=== PATIENT | female | born 1995 | race Caucasian/White ===

== ENCOUNTER 2016-11-25 16:03 | Observation (INO) ==
--- NOTE | 2016-11-25 17:22 | Emergency Department Note ---
Disposition Clinical Impression: Chest pain, rule out acute myocardial infarction, IVDU (intravenous drug user) Disposition: Admitted As Inpatient Condition: Good Referrals: NONE,PCP [Primary Care Provider] - Forms: ED Satisfaction Letter Time of Disposition: 20:10 General Adult HPI - General Chief complaint: ED Arrhythmia/Palpitations Stated complaint: CP/ Abnormal EKG Time Seen by Provider: 11/25/16 16:30 Source: patient Limitations: no limitations Nursing Notes Reviewed: Yes Vital Signs Reviewed: Yes - History of Present Illness HPI Narrative: 21 year old female who is a IVDA, meth, and heorin abuser states that she most recently had a meth binge in addition to doing heorin 3 days ago and is now having increased chest pain and shortness of breath and was seen at the urgent care and she has some t wave inversion on v1-3. Patient states that her chest pain is sharp and located in the midsternal area and radiates in her back and associated with exertion dyspnea. Patinet states that she has had some nausea assocated with it as well but has not vomitted. She states she also has been doing suboxone and that the meth they smoked and injected it. Patient states that this is the first time she is expernecing this chest pain and that she denies any other history of DVTs/PEs. States she also has diaphoresis with it as well Pain Scale: 3 - Related Data Home Medications Medication Instructions Recorded Confirmed No Known Home Drugs 08/27/16 11/25/16 Allergies Allergy/AdvReac Type Severity Reaction Status Date / Time No Known Allergies Allergy Verified 11/25/16 14:52 Constitutional: Denies: fever, chills, weakness, weight change Eyes: Denies: eye pain, eye discharge, vision change ENT ED: Denies: ear pain, throat pain, dental pain, hearing loss, epistaxis, congestion, dysphagia Cardiovascular: Reports: chest pain, palpitations, dyspnea on exertion. Denies : edema, syncope Respiratory: Denies: cough, dyspnea, wheezes, hemoptysis, stridor Gastrointestinal: Reports: nausea. Denies: abdominal pain, vomiting, diarrhea, constipation, hematemesis, melena, hematochezia Genitourinary: Denies: dysuria, frequency, hematuria, discharge Musculoskeletal: Denies: back pain, neck pain, arthralgia, myalgia Integumentary: Denies: rash, abrasion, lesions Neurological: Denies: headache, weakness, numbness, paresthesias, confusion, abnormal gait, vertigo Psychiatric: Denies: anxiety, depression, suicidal thoughts, homicidal thoughts , auditory hallucinations, visual hallucinations Endocrine: Denies: fatigue Hematological/Lymphatic: Denies: easy bleeding, easy bruising Allergic/Immunologic: Denies: facial swelling, urticaria Past Medical History - Past Medical History Medical history: Reports: hepatitis Surgical history: Reports: no surgical history Psychiatric history: Reports: no psych history COMBAT SYSTEMS OFFICER history: Reports: no COMBAT SYSTEMS OFFICER history - Social History Smoking Status: Current every day smoker Smokeless Tobacco Status: No Alcohol use: Reports: none Drug use: Reports: IV Drug Use, other Physical Exam - General Limitations: no limitations General appearance: alert, in no apparent distress - Head Head exam: atraumatic, normocephalic, normal inspection - Eye Eye exam: Present: normal appearance, PERRL, EOMI - Expanded Eye Exam Pupils: Left: reactive - ENT ENT exam: normal exam, normal oropharynx, mucous membranes moist - Expanded ENT Exam External ear exam: Present: normal external inspection Mouth exam: Present: normal external inspection Teeth exam: Present: normal inspection Throat exam: Present: normal inspection - Neck Neck exam: Present: normal inspection, full ROM, trachea midline - Chest Chest inspection: Present: normal inspection, symmetric chest wall rise - Respiratory Respiratory exam: Present: normal lung sounds bilaterally - Cardiovascular Cardiovascular exam: Present: regular rate, normal rhythm, normal heart sounds - Abdominal Exam Abdominal exam: Present: soft, Non-Tender. Absent: tenderness, distention, guarding, rebound, rigidity - Extremities Exam Extremities exam: Present: normal inspection, full ROM. Absent: tenderness, pedal edema - Expanded Upper Extremity Exam Shoulder exam: Present: normal inspection, full ROM Arm exam: Present: normal inspection, full ROM Elbow exam: Present: normal inspection, full ROM Forearm/Wrist exam: Present: normal inspection, full ROM Hand exam: Present: normal inspection, full ROM Vascular exam: Normal: capillary refill, radial pulse - Expanded Lower Extremity Exam Hip/Pelvis exam: Present: normal inspection, full ROM Upper leg exam: Present: normal inspection, full ROM Knee exam: Present: normal inspection, full ROM Lower leg exam: Present: normal inspection, full ROM Ankle exam: Present: normal inspection, full ROM Foot/toe exam: Present: normal inspection, full ROM Neurovascular/Tendon exam: Absent: motor deficit, sensory deficit, tendon deficit - Back Exam Back exam: Present: normal inspection, full ROM. Absent: tenderness - Neurological Exam Neurological exam: Present: alert, oriented X3 - Expanded Neurological Exam Patient oriented to: Present: person, place, time Coma Scale Eye Opening: Spontaneous Coma Scale Motor Response: Obeys Commands Coma Scale Verbal Response: Oriented Coma Scale Total: 15 - Psychiatric Psychiatric exam: Present: normal affect, normal mood - Skin Skin exam: Present: warm, dry, intact, normal color Course Course Narrative: we will do a CTA chest and cardiac workup and rule out pathology such as PE, endocarditis, or drug-induced cardiac ischemia - Reevaluation(s) Reevaluation #1: updated and discussed results. and patient is willing to be admitted to the hospital Time: 20:09 - Consultations Consultation #1: discussed case with Dr. gordon and he accepts patinet for admission. Time: 20:09 Vital Signs Temperature 98.0 F 11/25/16 16:14 Pulse Rate 75 11/25/16 16:14 Respiratory Rate 16 11/25/16 16:14 Blood Pressure 130/84 11/25/16 16:14 O2 Sat by Pulse Oximetry 99 11/25/16 16:14 Temperature 98.0 F 11/25/16 16:14 Pulse Rate 87 11/25/16 17:02 Respiratory Rate 20 11/25/16 17:02 Blood Pressure 121/75 11/25/16 17:02 O2 Sat by Pulse Oximetry 98 11/25/16 17:02 Oxygen Delivery Oxygen Delivery Room Air Medical Decision Making - Lab Data Result diagrams: 11/25/16 15:56 11/25/16 15:56 Lab Results 11/25/16 11/25/16 11/25/16 Range/Units 15:56 15:56 15:56 WBC 7.1 (4.3-11.1) K/mcL RBC 4.80 (3.82-4.97) M/mcL Hgb 13.8 (11.5-15.4) g/dL Hct 42.2 (35.3-44.9) % MCV 87.9 (83.0-100.0) fL MCH 28.8 (28.0-33.3) pg MCHC 32.7 (31.6-35.5) g/dL RDW 11.5 (11.5-14.5) % Plt Count 279 (140-400) K/mcL MPV 10.3 (9.4-12.4) fL Immature Gran % 0.1 (0-4) % Seg Neutrophils % 58.4 % Lymphocytes % 31.3 % Monocytes % 6.6 % Eosinophils % 3.2 % Basophils % 0.4 % Neutrophils # 4.1 (1.6-8.9) K/mcL Lymphocytes # 2.2 (0.6-4.6) K/mcL Monocytes # 0.5 (0.0-1.3) K/mcL Eosinophils # 0.2 (0.0-0.6) K/mcL Basophils # 0.0 (0.0-0.2) K/mcL PT 10.2 (9.4-12.1) Seconds INR 1.0 APTT 30.9 (26.0-36.0) Seconds D-Dimer 317 (0-500) ng/mLFEU Sodium (136-145) mEq/L Potassium (3.5-4.5) mEq/L Chloride (98-109) mEq/L Carbon Dioxide (19-29) mEq/L BUN (7-20) mg/dL Creatinine (0.57-1.11) mg/dL Est GFR ( Amer) (> 60) Est GFR (Non-Af Amer) (> 60) BUN/Creatinine Ratio (6-26) Glucose (70-99) mg/dL Calculated Osmolality (280-300) Calcium (8.6-10.8) mg/dL Total Bilirubin (0.2-1.2) mg/dL Direct Bilirubin (0.0-0.5) mg/dL Indirect Bilirubin (0.0-1.2) mg/dL AST (5-34) Units/L ALT (0-55) Units/L Alkaline Phosphatase (38-126) Units/L Troponin I (0-0.03) ng/mL B-Natriuretic Peptide 13 (0-100) pg/mL Serum Total Protein (6.0-8.3) g/dL Albumin (3.5-5.0) g/dL Globulin (2.4-3.5) g/dL Albumin/Globulin Ratio (1.1-2.2) Lipase (8-78) Units/L Urine Color (Yellow) Urine Clarity (Clear) Urine pH (5.0-8.0) pH Units Ur Specific [place] (1.010-1.025) Urine Protein (Neg-Trace) mg/dL Urine Glucose (UA) (Normal) mg/dL Urine Ketones (Negative) mg/dL Urine Blood (Negative) Urine Nitrite (Negative) Urine Bilirubin (Negative) Urine Urobilinogen (Normal) mg/dL Ur Leukocyte Esterase (Negative) Urine Microscopic RBC (0-3) per hpf Urine Microscopic WBC (0-3) per hpf Ur Squamous Epith Cells (None-Few) per lpf Urine Bacteria (None-Few) per hpf Hyaline Casts (None-Few) per lpf Ur Culture Indicated? (NO) Urine Test (Negative) Urine Opiates Screen (Butfsu=413) ng/mL Ur Barbiturates Screen (Sratgu=919) ng/mL Ur Phencyclidine Scrn (Cutoff=25) ng/mL Ur Amphetamines Screen (Znsuas=3768) ng/mL U Benzodiazepines Scrn (Huwmsn=933) ng/mL Urine Cocaine Screen (Cutoff= 300) ng/mL U Marijuana (THC) Screen (Cutoff = 50) ng/mL 11/25/16 11/25/16 11/25/16 Range/Units 15:56 15:56 17:02 WBC (4.3-11.1) K/mcL RBC (3.82-4.97) M/mcL Hgb (11.5-15.4) g/dL Hct (35.3-44.9) % MCV (83.0-100.0) fL MCH (28.0-33.3) pg MCHC (31.6-35.5) g/dL RDW (11.5-14.5) % Plt Count (140-400) K/mcL MPV (9.4-12.4) fL Immature Gran % (0-4) % Seg Neutrophils % % Lymphocytes % % Monocytes % % Eosinophils % % Basophils % % Neutrophils # (1.6-8.9) K/mcL Lymphocytes # (0.6-4.6) K/mcL Monocytes # (0.0-1.3) K/mcL Eosinophils # (0.0-0.6) K/mcL Basophils # (0.0-0.2) K/mcL PT (9.4-12.1) Seconds INR APTT (26.0-36.0) Seconds D-Dimer (0-500) ng/mLFEU Sodium 138 (136-145) mEq/L Potassium 3.3 L (3.5-4.5) mEq/L Chloride 102 (98-109) mEq/L Carbon Dioxide 25 (19-29) mEq/L BUN 17 (7-20) mg/dL Creatinine 0.80 (0.57-1.11) mg/dL Est GFR ( Amer) > 60 (> 60) Est GFR (Non-Af Amer) > 60 (> 60) BUN/Creatinine Ratio 21 (6-26) Glucose 85 (70-99) mg/dL Calculated Osmolality 287 (280-300) Calcium 9.5 (8.6-10.8) mg/dL Total Bilirubin 0.4 (0.2-1.2) mg/dL Direct Bilirubin 0.3 (0.0-0.5) mg/dL Indirect Bilirubin 0.1 (0.0-1.2) mg/dL AST 28 (5-34) Units/L ALT 29 (0-55) Units/L Alkaline Phosphatase 81 (38-126) Units/L Troponin I 0.01 (0-0.03) ng/mL B-Natriuretic Peptide (0-100) pg/mL Serum Total Protein 8.0 (6.0-8.3) g/dL Albumin 4.0 (3.5-5.0) g/dL Globulin 4.0 H (2.4-3.5) g/dL Albumin/Globulin Ratio 1.0 L (1.1-2.2) Lipase 11 (8-78) Units/L Urine Color (Yellow) Urine Clarity (Clear) Urine pH (5.0-8.0) pH Units Ur Specific [place] (1.010-1.025) Urine Protein (Neg-Trace) mg/dL Urine Glucose (UA) (Normal) mg/dL Urine Ketones (Negative) mg/dL Urine Blood (Negative) Urine Nitrite (Negative) Urine Bilirubin (Negative) Urine Urobilinogen (Normal) mg/dL Ur Leukocyte Esterase (Negative) Urine Microscopic RBC (0-3) per hpf Urine Microscopic WBC (0-3) per hpf Ur Squamous Epith Cells (None-Few) per lpf Urine Bacteria (None-Few) per hpf Hyaline Casts (None-Few) per lpf Ur Culture Indicated? (NO) Urine Test Negative (Negative) Urine Opiates Screen (Kjhuaq=146) ng/mL Ur Barbiturates Screen (Pbyehe=156) ng/mL Ur Phencyclidine Scrn (Cutoff=25) ng/mL Ur Amphetamines Screen (Afhwep=8438) ng/mL U Benzodiazepines Scrn (Trgafd=498) ng/mL Urine Cocaine Screen (Cutoff= 300) ng/mL U Marijuana (THC) Screen (Cutoff = 50) ng/mL 11/25/16 11/25/16 Range/Units 17:06 17:06 WBC (4.3-11.1) K/mcL RBC (3.82-4.97) M/mcL Hgb (11.5-15.4) g/dL Hct (35.3-44.9) % MCV (83.0-100.0) fL MCH (28.0-33.3) pg MCHC (31.6-35.5) g/dL RDW (11.5-14.5) % Plt Count (140-400) K/mcL MPV (9.4-12.4) fL Immature Gran % (0-4) % Seg Neutrophils % % Lymphocytes % % Monocytes % % Eosinophils % % Basophils % % Neutrophils # (1.6-8.9) K/mcL Lymphocytes # (0.6-4.6) K/mcL Monocytes # (0.0-1.3) K/mcL Eosinophils # (0.0-0.6) K/mcL Basophils # (0.0-0.2) K/mcL PT (9.4-12.1) Seconds INR APTT (26.0-36.0) Seconds D-Dimer (0-500) ng/mLFEU Sodium (136-145) mEq/L Potassium (3.5-4.5) mEq/L Chloride (98-109) mEq/L Carbon Dioxide (19-29) mEq/L BUN (7-20) mg/dL Creatinine (0.57-1.11) mg/dL Est GFR ( Amer) (> 60) Est GFR (Non-Af Amer) (> 60) BUN/Creatinine Ratio (6-26) Glucose (70-99) mg/dL Calculated Osmolality (280-300) Calcium (8.6-10.8) mg/dL Total Bilirubin (0.2-1.2) mg/dL Direct Bilirubin (0.0-0.5) mg/dL Indirect Bilirubin (0.0-1.2) mg/dL AST (5-34) Units/L ALT (0-55) Units/L Alkaline Phosphatase (38-126) Units/L Troponin I (0-0.03) ng/mL B-Natriuretic Peptide (0-100) pg/mL Serum Total Protein (6.0-8.3) g/dL Albumin (3.5-5.0) g/dL Globulin (2.4-3.5) g/dL Albumin/Globulin Ratio (1.1-2.2) Lipase (8-78) Units/L Urine Color Yellow (Yellow) Urine Clarity Cloudy A (Clear) Urine pH 5.5 (5.0-8.0) pH Units Ur Specific [place] > 1.030 H (1.010-1.025) Urine Protein Trace (Neg-Trace) mg/dL Urine Glucose (UA) Normal (Normal) mg/dL Urine Ketones Negative (Negative) mg/dL Urine Blood Negative (Negative) Urine Nitrite Negative (Negative) Urine Bilirubin Negative (Negative) Urine Urobilinogen Normal (Normal) mg/dL Ur Leukocyte Esterase Negative (Negative) Urine Microscopic RBC 0-3 (0-3) per hpf Urine Microscopic WBC 5-15 H (0-3) per hpf Ur Squamous Epith Cells Many H (None-Few) per lpf Urine Bacteria None Seen (None-Few) per hpf Hyaline Casts None Seen (None-Few) per lpf Ur Culture Indicated? YES A (NO) Urine Test (Negative) Urine Opiates Screen Negative (Pwqasm=538) ng/mL Ur Barbiturates Screen Negative (Bzsmrr=479) ng/mL Ur Phencyclidine Scrn Negative (Cutoff=25) ng/mL Ur Amphetamines Screen Positive H (Dhwxhp=0960) ng/mL U Benzodiazepines Scrn Negative (Bicidv=870) ng/mL Urine Cocaine Screen Negative (Cutoff= 300) ng/mL U Marijuana (THC) Screen Negative (Cutoff = 50) ng/mL - EKG Data EKG #1 EKG attestation: Yes I reviewed and interpreted this EKG. EKG results narrative: NSR with rate of 66. NO STEMI. normal intervals. T wave inversion in V1-2. no chnge from previous ekg today at the urgent care. no other ekg to compare. [id number]
[2016-11-25 17:24] LABS: Bilirubin,Urine Negative (Negative); Blood,Urine Negative (Negative); Clarity,Urine Cloudy (Clear); Color,Urine Yellow (Yellow); Glucose,Urine (UA) Normal (Normal); Ketones,Urine Negative (Negative); Leukocyte Esterase,Urine Negative (Negative); Nitrite,Urine Negative (Negative); PH,Urine 5.5 pH Units (5.0-8.0); Protein,Urine Trace mg/dL (Neg-Trace); Specific Gravity,Urine > 1.030 (1.010-1.025); Urobilinogen,Urine Normal (Normal)
[2016-11-25 17:28] LABS: Amphetamine Screen,Urine Positive ng/mL (Cutoff=1000); Barbiturate Screen,Urine Negative ng/mL (Cutoff=200); Benzodiazepines Screen,Urine Negative ng/mL (Cutoff=200); Cannabinoid Screen,Urine Negative ng/mL (Cutoff = 50); Cocaine Screen,Urine Negative ng/mL (Cutoff= 300); Opiate Screen,Urine Negative ng/mL (Cutoff=300); Phencyclidine Screen,Urine Negative ng/mL (Cutoff=25)
[2016-11-25] MEDS ORDERED: *HR* LORazepam 2 MG/ML VIAL IVP ONE (17:31)
[2016-11-25 17:32] LABS: Basophils % 0.4 %; Eosinophils # 0.2 K/mcL (0.0-0.6); Eosinophils % 3.2 %; Hematocrit 42.2 % (35.3-44.9); Hemoglobin 13.8 g/dL (11.5-15.4); Immature Granulocytes % 0.1 % (0-4); Lymphocytes # 2.2 K/mcL (0.6-4.6); Lymphocytes % 31.3 %; Mean Corpuscular HGB Conc 32.7 g/dL (31.6-35.5); Mean Corpuscular Hemoglobin 28.8 pg (28.0-33.3); Mean Corpuscular Volume 87.9 fL (83.0-100.0); Mean Platelet Volume 10.3 fL (9.4-12.4); Monocytes # 0.5 K/mcL (0.0-1.3); Monocytes % 6.6 %; Neutrophils # 4.1 K/mcL (1.6-8.9); Platelet Count 279 K/mcL (140-400); Red Cell Distribution Width 11.5 % (11.5-14.5); Segmented Neutrophils % 58.4 %
[2016-11-25 17:46] LABS: Alanine Aminotransferase 29 Units/L (0-55); Alkaline Phosphatase 81 Units/L (38-126); Aspartate Amino Transferase 28 Units/L (5-34); BUN/Creatinine Ratio 21 (6-26); Bilirubin,Direct 0.3 mg/dL (0.0-0.5); Bilirubin,Indirect 0.1 mg/dL (0.0-1.2); Bilirubin,Total 0.4 mg/dL (0.2-1.2); Blood Urea Nitrogen 17 mg/dL (7-20); Calcium 9.5 mg/dL (8.6-10.8); Carbon Dioxide 25 mEq/L (19-29); Chloride 102 mEq/L (98-109); Glucose 85 mg/dL (70-99); Lipase 11 Units/L (8-78); Osmolality,Calculated 287 (280-300); Potassium 3.3 mEq/L (3.5-4.5); Sodium 138 mEq/L (136-145); eGFR For African Americans > 60 (> 60); eGFR For Non-African Americans > 60 (> 60)
[2016-11-25 17:48] LABS: Bacteria,Urine None Seen per hpf (None-Few); Hyaline Casts,Urine None Seen per lpf (None-Few); RBC,Urine 0-3 per hpf (0-3); Squamous Epithelial Cell,Urine Many per lpf (None-Few)
[2016-11-25 17:48] LABS: Prothrombin Time 10.2 Seconds (9.4-12.1)
[2016-11-25 17:50] LABS: Activated Partial Thrombo Time 30.9 Seconds (26.0-36.0)
[2016-11-25] MEDS ORDERED: Aspirin 325 MG TABLET PO ONE (18:27)
[2016-11-25] MEDS ORDERED: *HR* LORazepam 1 MG TABLET PO PRN (21:02)
--- NOTE | 2016-11-25 21:09 | Internal Med History&Physical ---
Date of Encounter: 11/25/16 Time of Encounter: 21:06 Assessment and Plan (1) Chest pain Current visit: No Status: Acute Likely related to methamphetamine use causing hypertension or coronary spasm. Electrocardiogram shows ST depression in V1-V3. Changes appear dynamic will keep patient on aspirin Ativan. Denies any prior noncardiac history. Serial cardiac markers. She was ofF pain during my interview Qualifiers: Qualified Code(s): R07.9 - Chest pain, unspecified (2) IVDU (intravenous drug user) Current visit: Yes Status: Acute Patient was concerned because she mentioned she has subjective chills. Discuss with her that will get blood cultures. If positive will pursue further workup to r/o endocarditis. Internal Medicine - H&P: HPI Chief complaint: CHEST PAIN History of present illness: Ms. Cagle is a 21 year old female presents to the emergency room today with the main complaint of chest pain. Patient initially presented to urgent care with complaining of chest pain and shortness of breath intermittently over the past 3 days. There was no relation with exertion. Patient takes IV drugs in the form of methamphetamine. She mentioned that she took methamphetamines 3 days ago. Over the past 3 days she has been experiencing intermittent retrosternal chest pain palpitations and shortness of breath. There electrocautery cartogram at urgent care show to 11 version of the one to the 3 so she was sent to our facility for further management. She denies any prior cardiac history. Patient mentioned that she has been having intermittent subjective chills over the past days. However she is not ill appearing. And appetite is fair Past Med Surg Social Fam HX - Past Medical History Medical history: hepatitis Psychiatric history: no psych history - Past Surgical History Surgical History: no surgical history - Social History Smoking Status: Current every day smoker Smokeless Tobacco Status: No Alcohol use: none Drug use: IV Drug Use, other Internal Medicine - H&P: Meds No Known Home Drugs 08/27/16 [History] 3 Allergy/AdvReac Type Severity Reaction Status Date / Time No Known Allergies Allergy Verified 11/25/16 14:52 All Systems PM: A 10-system review of systems was performed and is negative for pertinent findings except as documented above in the HPI. Review of systems: 10 point review of systems is negative except for HPI - Constitutional Vitals: Temp Pulse Resp BP Pulse Ox 98.0 F 87 20 121/75 98 11/25/16 16:14 11/25/16 17:02 11/25/16 17:02 11/25/16 17:02 11/25/16 17:02 Exam: Gen.: patient is alert oriented times 3 cardiac: normal S1 S2 no additional sounds or murmurs chest: no active wheezing or bronchial breathing abdomen soft nontender nondistended normal bowel sounds lower extremity no swelling. Neuro: no new focal deficits Internal Med - H&P Results - Labs CBC & Chem 7: 11/25/16 15:56 11/25/16 15:56
[2016-11-25] MEDS: *HR* Heparin 5,000 UNIT/ML VIAL SQ SCH (22:30)
[2016-11-26 05:23] LABS: Basophils % 0.5 %; Eosinophils # 0.3 K/mcL (0.0-0.6); Hematocrit 40.7 % (35.3-44.9); Hemoglobin 13.4 g/dL (11.5-15.4); Immature Granulocytes % 0.2 % (0-4); Lymphocytes # 2.7 K/mcL (0.6-4.6); Lymphocytes % 42.3 %; Mean Corpuscular HGB Conc 32.9 g/dL (31.6-35.5); Mean Corpuscular Hemoglobin 29.1 pg (28.0-33.3); Mean Corpuscular Volume 88.5 fL (83.0-100.0); Mean Platelet Volume 10.8 fL (9.4-12.4); Monocytes # 0.4 K/mcL (0.0-1.3); Monocytes % 6.6 %; Neutrophils # 2.9 K/mcL (1.6-8.9); Platelet Count 292 K/mcL (140-400); Red Cell Distribution Width 11.7 % (11.5-14.5); Segmented Neutrophils % 45.4 %
[2016-11-26 05:50] LABS: BUN/Creatinine Ratio 16 (6-26); Blood Urea Nitrogen 12 mg/dL (7-20); C-Reactive Protein 6 mg/L (Less than 5); Calcium 9.2 mg/dL (8.6-10.8); Carbon Dioxide 25 mEq/L (19-29); Chloride 105 mEq/L (98-109); Glucose 81 mg/dL (70-99); Osmolality,Calculated 287 (280-300); Potassium 3.6 mEq/L (3.5-4.5); Sodium 139 mEq/L (136-145); eGFR For African Americans > 60 (> 60); eGFR For Non-African Americans > 60 (> 60)
[2016-11-26] MEDS: *HR* Heparin 5,000 UNIT/ML VIAL SQ SCH (06:38)
[2016-11-26 07:17] VITALS: BP 105/67
[2016-11-26] MEDS ORDERED: Aspirin 325 MG TABLET PO SCH (09:00)
--- NOTE | 2016-11-26 09:45 | Discharge Summary ---
Date of Encounter: 11/26/16 Time of Encounter: 09:43 - Discharge Diagnosis (1) Chest pain Priority: Primary Status: Acute Qualifiers: Chest pain type: other chest pain Qualified Code(s): R07.89 - Other chest pain; R07.8 - Other chest pain (2) IVDU (intravenous drug user) Priority: Secondary Status: Acute - Discharge Medications Home Medications: Buprenorphine HCl/Naloxone HCl [Suboxone 8 mg-2 mg Sl Film] 1 each SL BID [History] Allergies/Adverse Reactions: 3 Allergy/AdvReac Type Severity Reaction Status Date / Time No Known Allergies Allergy Verified 11/25/16 14:52 Date of admission: 11/25/16 20:47 Primary care physician: PCP NONE Discharging clinician: Butch Mccauley Anticipated date of discharge: 11/26/16 - Patient Status Disposition: Home, Self-Care Condition: Good Functional capacity at discharge: independent ambulation Overall status at discharge: patient is progressing back to baseline - Discharge Instructions Instructions: Chest Pain (DC) Follow Up With: NONE,PCP [Primary Care Provider] - - Diet and Activity Activity: increase activity as tolerated Diet: advance to your usual diet Hospital course: Ms. Cagle is a 21 year old female patient with history of IV drug abuse and methamphetamine use presented to urgent care clinic initially with complaints of chest pain and shortness of breath ongoing for about 3 days. She had taken methamphetamines to 3 days prior after which she began to experience the symptoms. EKG done at the urgent care clinic showed some T-wave inversions in anterior leads. As such she was referred to the ER here for evaluation and workup. Reviewing her records, she has had prior EKGs here which showed a similar abnormality. She was observed here and her troponins were trended. Today she is just waking up but denies any chest pain at this time. She is clinically stable for discharge. She has been counseled about cessation of drug abuse and to seek help for it. She understands she may continue to have chest pain if she continues to take methamphetamines in addition to other problems. Patient had also complained of some fever and chills before she came in to the ER. However during her stay here she has not had any further episodes of fever. She has not received any antibiotics but her blood cultures have been sent. These will be followed and if they are positive we will follow up with the patient and have her come back in. - Time Spent with Patient Total time spent providing and/or coordinating discharge services: Less than 30 minutes (20 min) - Constitutional Vitals: Temp Pulse Resp BP Pulse Ox 97.3 F L 63 15 105/67 98 11/26/16 07:13 11/26/16 07:13 11/26/16 07:13 11/26/16 07:11/26/16 07:13 General appearance: Present: cooperative, A&O X 3, answers questions appropriately - Respiratory Respiratory exam: Present: CTAB. Absent: accessory muscle use, rales, rhonchi, wheezes - Cardiovascular Cardiovascular exam: Present: RRR, +S1, +S2. Absent: diastolic murmur, gallop, rubs, systolic murmur - GI/Abdominal GI/Abdominal exam: Present: normal bowel sounds, soft, no peritoneal signs. Absent: distended, tenderness - Neurological Exam Neurological exam: Present: alert, oriented X3, no focal deficits. Absent: facial droop, speech deficit
--- NOTE | 2016-11-26 17:02 | Electrocardiograph Report ---
[place] [id number] Test Date: 2016-11-25 Pat Name: Oralia Cagle Department: 105 Room: 3B23 Gender: F Network Technician: CRUZ : 1995 Requested By: Elizabeth Stapleton Order Number: [id number] Reading MD: Arsenio Campbell DO Measurements Intervals [place] Rate: 66 P: 55 NE: 135 QRS: 67 QRSD: 90 T: 26 QT: 400 QTc: 414 Interpretive Statements SINUS RHYTHM WITH SINUS ARRHYTHMIA Electronically Signed On 11-26-2016 17:00:48 EDT by Arsenio Campbell DO
--- NOTE | 2016-11-26 17:12 | Electrocardiograph Report ---
[place] [id number] Test Date: 2016-11-26 Pat Name: Oralia Cagle Department: 113 Room: 3B23 Gender: F Motor Winder: SELWYN : 1995 Requested By: Butch Mccauley Order Number: [id number] Reading MD: Arsenio Campbell DO Measurements Intervals [place] Rate: 62 P: 57 MT: 140 QRS: 66 QRSD: 90 T: 45 QT: 420 QTc: 425 Interpretive Statements SINUS RHYTHM WITH SINUS ARRHYTHMIA Electronically Signed On 11-26-2016 17:10:40 EDT by Arsenio Campbell DO
[2016-11-28 23:01] LABS: CK-BB (CK isoenzymes) 0 % (0-0); CK-MB (CK isoenzymes) 0 % (0-4); CK-MM (CK-isoenzymes) 100 % (96-100)
[2016-11-28 23:01] LABS: CK-BB (CK isoenzymes) 0 % (0-0); CK-MB (CK isoenzymes) 0 % (0-4); CK-MM (CK-isoenzymes) 100 % (96-100)
[2016-11-29 13:54] LABS: CK Total (Ck Isoenzymes) 151 U/L (20-180)
[2016-11-30 07:29] LABS: CK Total (Ck Isoenzymes) 101 U/L (20-180)
== END 2016-11-26 12:50 | disposition home or self-care (01) ==
LOC: 3BNU 16:03 → EMEROO 16:03 → SUATTDRO 20:47 → 3BNU 21:46
PROVIDERS: ADMIT Hospitalist; ATTEND Internal Medicine

== ENCOUNTER 2018-01-07 01:13 | Inpatient (IN) ==
[2018-01-07 01:13] LABS: Amphetamine Screen,Urine Negative ng/mL (Cutoff=1000); Barbiturate Screen,Urine Negative ng/mL (Cutoff=200); Benzodiazepines Screen,Urine Negative ng/mL (Cutoff=200); Cannabinoid Screen,Urine Negative ng/mL (Cutoff = 50); Cocaine Screen,Urine Negative ng/mL (Cutoff= 300); Opiate Screen,Urine Negative ng/mL (Cutoff=300); Phencyclidine Screen,Urine Negative ng/mL (Cutoff=25)
[2018-01-07] MEDS ORDERED: Naloxone 0.4 MG/ML INJ IVP PRN (01:17)
[2018-01-07] MEDS ORDERED: Famotidine 20 MG/2 ML VIAL IVP PRN (01:17)
[2018-01-07] MEDS ORDERED: Metoclopramide 10 MG/2 ML VIAL IVP PRN (01:17)
[2018-01-07] MEDS ORDERED: Ondansetron 4 MG/2 ML VIAL IVP PRN (01:17)
[2018-01-07] MEDS ORDERED: Penicillin G Potassium 5,000,000 UNIT in 0.9 % Sodium Chloride Mini Bag 100 ML IVPB ONE (01:30)
--- NOTE | 2018-01-07 01:39 | OB/GYN History & Physical ---
Date of Encounter: 01/07/18 Time of Encounter: 01:33 Assessment and Plan (1) 39 weeks gestation of Current visit: Yes Status: Acute admitted for spontaneous labor (2) Hepatitis C Current visit: Yes Status: Acute Qualifiers: Viral hepatitis chronicity: unspecified Hepatic coma status: without hepatic coma Qualified Code(s): B19.20 - Unspecified viral hepatitis C without hepatic coma (3) complicated by subutex maintenance, antepartum Current visit: Yes Status: Acute Patient to continue prescribed dose Infant 5 day hold cord stat history of IV drug use (4) Group B streptococcal carriage complicating Current visit: Yes Status: Acute Group B strep protocol started (5) Rubella non-immune status, antepartum Current visit: Yes Status: Acute MMR to be offered after delivery prior to discharge home History of Present Illness Chief complaint: Spontaneous labor HPI: Ms. Cagle is a 22 year old female at 39w1d presents to labor and delivery with complaints of contractions that started early yesterday and progressed through the day to 5-15 min apart lasting about 1 minute. Patient reports contractions became stronger and got harder to talk through. Patient denies any LOF or VB. Patient reports +FM. Patient's is complicated by Subutex maintenance and Hep. C. Patient also has history of fractured pelvis with owen that was placed in the back of the pelvis. Patient reports she has been cleared by her surgeon for a vaginal delivery. Blood type: O Positive Rubella: Non-immune Hep. B: Non-reactive GBS: Positive Hep. C: Positive Past Med Surg Social Fam HX - Past Medical History Source: patient Medical history: hepatitis Additional medical history: Hep C Psychiatric history: anxiety, depression - Past Surgical History Surgical History: other Additional surgical history: fx pelvis with rods - Social History Smoking Status: Current every day smoker Smokeless Tobacco Status: No Alcohol use: none Drug use: methamphetamine, other Current living situation: Home - Independent Activity Level: Independent ambulation Recent Out of Country Travel Within the Last 8 Weeks: No Exposure or Possible Exposure to Illness During Travel: No - Family History Grandmother Hx Family Cardiac Disorders: Yes (heart problems) Father Hx Family Endocrine Disorder: Yes Mother Living Status: Still Living Hx Family Cardiac Disorders: Yes (HTN) Obstetrical History - Pregnancies : 1 Para: 0 Term: 0 : 0 Ab's: 0 Livin Medications and Allergies Buprenorphine HCl/Naloxone HCl [Suboxone 8 mg-2 mg Sl Film] 1 each SL BID 11/25/16 [History] Allergy/AdvReac Type Severity Reaction Status Date / Time No Known Allergies Allergy Verified 01/06/18 23:50 Review of System OB - Constitutional Constitutional ROS IM: no chills, no fever(s), no headache(s) - Cardiovascular Cardiovascular: no chest pain, no edema, no lightheadedness, no palpitations, no syncope - Respiratory Respiratory: no dyspnea - Gastrointestinal Gastrointestinal: no constipation, no diarrhea, no heartburn, no nausea, no vomiting - Genitourinary Genitourinary: no abnormal vaginal bleeding, no difficulty urinating, no dysuria, no flank pain, no urinary frequency, no urinary urgency, no vaginal discharge, no vaginal odor, no vaginal pruritis Exam - Constitutional Constitutional: well developed, well nourished, no acute distress, average body habitus - HEENT HEENT: Normocephaly, Mucus Membranes Moist - Neck Neck exam: full ROM, supple - Lungs Respiratory exam: CTAB - Cardiovascular Cardiovascular exam: RRR, +S1, +S2 - Abdomen Abdomen: Present: bowel sounds normal, gravid, non tender - Extremities Extremities exam: full ROM, normal capillary refill, normal inspection, pedal edema (1+) Deep Tendon Reflex Grade: 2+ Normal - Cervix Dilation: 6 (per RN) Effacement: 90 Station: -1 - Uterus Uterus exam: Present: normal size, normal contour - Anus/Rectum Anus/Rectum: Present: normal perianal skin - Comments Comments: FHR 135 bpm moderate variability +15x15 accels no decels noted. Contractions 2-3 min apart. CAt. 1 tracing. Results All other labs normal. - VTE Reasons for not Prescribing Prophylaxis: Treatment not Indicated - Low risk for VTE
[2018-01-07 02:10] LABS: Basophils % 0.1 %; Eosinophils # 0.1 K/mcL (0.0-0.6); Eosinophils % 0.9 %; Hematocrit 37.2 % (35.3-44.9); Hemoglobin 12.5 g/dL (11.5-15.4); Immature Granulocytes % 0.4 % (0-4); Immature Platelets 5.4 % (1.1-6.1); Lymphocytes # 2.4 K/mcL (0.6-4.6); Lymphocytes % 17.4 %; Mean Corpuscular HGB Conc 33.6 g/dL (31.6-35.5); Mean Corpuscular Hemoglobin 30.5 pg (28.0-33.3); Mean Corpuscular Volume 90.7 fL (83.0-100.0); Mean Platelet Volume 10.6 fL (9.4-12.4); Monocytes # 0.8 K/mcL (0.0-1.3); Monocytes % 5.6 %; Neutrophils # 10.3 K/mcL (1.6-8.9); Platelet Count 223 K/mcL (140-400); Red Cell Distribution Width 12.4 % (11.5-14.5); Segmented Neutrophils % 75.6 %
[2018-01-07] MEDS: Ringers Solution, Lactated 1,000 ML IVC SCH ×2 (02:36→11:06)
[2018-01-07] MEDS: Penicillin G Potassium 2,500,000 UNIT in 0.9 % Sodium Chloride 100 ML IVPB SCH ×2 (06:41→11:05)
[2018-01-07] MEDS ORDERED: Epidural Premix (fent/bupiv) 110 ML EP SCH (06:45)
[2018-01-07] MEDS ORDERED: Bupivacaine-MPF 0.25% 10 ML VIAL ONE (06:49)
[2018-01-07] MEDS ORDERED: *HR* FentaNYL (PF) 100 MCG/2 ML VIAL ONE (06:49)
[2018-01-07] MEDS ORDERED: Lidocaine 1% 20 ML MDV ONE (06:49)
--- NOTE | 2018-01-07 07:32 | Anesthesia Evaluation PreOp ---
Date of Encounter: 01/07/18 Time of Encounter: 07:30 - Past History Planned Operation: ABDULKADIR Cardiac History: Denies any Significant Hx Pulmonary History: Smoker PHOTO GRAPHICS LIBRARIAN History: Other (anxiety, depression) Other Medical History: Hepatic (hepatitis C) Anesthesia History: No Prior Anesthetic Complications (never had any procedure requiring NA; denies personal and family h/o GA complications) Alcohol Use: none Drug use: methamphetamine, IV Drug Use (last used 1 year ago; compliant w/ subutex regimen), other Medications and Allergies Buprenorphine HCl/Naloxone HCl [Suboxone 8 mg-2 mg Sl Film] 1 each SL BID 11/25/16 [History] Allergy/AdvReac Type Severity Reaction Status Date / Time No Known Allergies Allergy Verified 01/06/18 23:50 - Meds/Allergy Pre-op Review Medications Reviewed: Yes Allergies Reviewed: Yes Beta Blockers on Current Med List: No Anesthesia Results - Labs 01/07/18 01:57 Anesthesia Exam O2 Sat Height 1.68 m Weight 76.5 kg NPO (# of Hours): solids > 8hrs Pain Scale: 8 Pain Scale Used: Numeric (1 - 10) - HEENT Pupil (Motor): Pupils equal Mallampati: II Teeth: Normal Oral Opening: Greater than 3 - PHOTO GRAPHICS LIBRARIAN LOC: Oriented PHOTO GRAPHICS LIBRARIAN Motor: Normal RUE, Normal LUE, Normal RLE, Normal LLE, Normal Face PHOTO GRAPHICS LIBRARIAN Sensory: Normal: RUE, LUE, RLE, LLE, Face - Cardiac Rhythm: Regular Murmur: None - Pulmonary Breath Sounds: bilateral Clear Respiratory Effort: Symmetrical Anesthesia Assess/Plan ASA Score: 2 Modified [place] Scale for Level of Consciousness: Anixous, agitated or restless Anesthetic Plan: Regional Autologous Blood: No Monitoring Plan: Standard Monitors Recovery Plan: Other
--- NOTE | 2018-01-07 07:38 | Anesthesia Procedures ---
Date of Encounter: 01/07/18 Time of Encounter: 06:59 Procedures: Anesthesia - Epidural/Spinal Patient ID/Chart reviewed: Yes Patient examined: Yes OB Eval: Gestational age: 39 weeks 1 day OB Eval: : 1 OB Eval: Hx Para: 0 OB Eval: Dilated at (cm): 7 OB Eval: Contractions: Non-stressed pattern Consent Obtained: Yes Supplemental Oxygen: None/Room Air Site Prep: Aseptic Technique, Sterile prep and drape, Povidone-Iodine 1% Patient position: upright Local Anesthetic: Lidocaine 1% Amount of Local Anesthetic used: 3 Touhy Needle Gauge: 18 Touhy Needle Depth (cm): 5 Catheter Depth at Skin (cm): 10 Test Dose (1.5% Lido + Epi): Volume given (mls): 5 Test Dose Result: Negative Loading Dose: 0.25% Marcaine (mls): 5 Loading Dose: Fentanyl (mcg): 100 Loading Dose Administered: Thru Catheter Infusion Med: 0.125% Bupivacaine w/ 2 mcg/ml Fentanyl Infusion Rate (mls/hr): 16 (w/ demand bolus of 6mL q30min PRN) Catheter Secured in Place: Tegaderm, Tape Interspace Used: L3-L4 Loss of Resistance (ERIK): Yes Blood: No CSF: No Paresthesia: No Procedure: successful at 1st interspace; patient tolerated procedure well; VSS Vitals + FHT's: Please see Jaclyn JOSUE's electronic records for VS entry
[2018-01-07] MEDS ORDERED: Oxytocin 20 units/ LR 1000 mL 20 UNIT/1,000 ML BAG IVC ONE (09:44)
[2018-01-07] MEDS ORDERED: Oxytocin 20 units/ LR 1000 mL 20 UNIT/1,000 ML BAG IVC SCH ×2 (09:45→20:21)
--- NOTE | 2018-01-07 09:54 | OB Labor Progress Note ---
Date of Encounter: 01/07/18 Time of Encounter: 09:52 Labor Progress Note - Subjective Subjective: Patient resting comfortably after epidural placement. - Cervix Cervix: 7/90/-1 - Heart Tones Heart Tones: 135 bpm moderate variability, +15x15 accels, no decels. - Searchlight Searchlight: Irregular contractions. - Interventions Interventions: SVE - Plan Plan: Consider Pitocin augmentation AROM when appropriate. Plan of care discussed with Dr. Melgoza.
--- NOTE | 2018-01-07 11:48 | OB Labor Progress Note ---
Date of Encounter: 01/07/18 Time of Encounter: 11:44 Labor Progress Note - Subjective Subjective: Patient remains comfortable after epidural placement. - Cervix Cervix: 8/100/-1 to 0 - Heart Tones Heart Tones: FHR 130 bpm, moderate variability, +15x15 accels, no decels currently. After AROM, prolonged deceleration noted with appropriate response to intrauterine resuscitation meausres. Will continue to monitor. - Interventions Interventions: AROM for small amount of clear fluid. IUPC placed by Jackson Witt CNM - Plan Plan: Continue expectant management. Pitocin for augmentation if needed. Anticipate
--- NOTE | 2018-01-07 13:21 | OB Labor Progress Note ---
Date of Encounter: 01/07/18 Time of Encounter: 13:20 Labor Progress Note - Subjective Subjective: Pt still resting comfortably in bed with epidural in place. Denies pain. - Cervix Cervix: 8-9 cm/100/-1 to 0 - Heart Tones Heart Tones: FHR 135bpm, moderate variability, occasional prolonged decelerations that respond to intrauterine resuscitation measures. - Bradshaw Bradshaw: Irregular contractions. - Interventions Interventions: SVE without change. Position changes - Plan Plan: Dr. Melgoza updated on plan of care and Category II tracing. Continue expectant management. Pitocin augmentation if needed.
--- NOTE | 2018-01-07 17:21 | Event Note ---
Date of Encounter: 01/07/18 Time of Encounter: 17:19 I was present for the delivery of Mrs Cagle. Viable male infant performed by new family services assistant. 2nd degree laceration repaired with assistance of senior family services assistant. Esther COSTA
--- NOTE | 2018-01-07 17:59 | OB/GYN Procedure Note ---
Delivery - Delivery Date: 01/07/18 Provider: Maria Fernanda Gore (Jackson Melgoza MD olson) Intrapartum events: none Delivery induction: none Delivery augmentation: rupture of membranes, pitocin Delivery monitor: external FHT, internal uterine Anesthesia: epidural Quantitated Blood Loss: 100 - (s) Infant A Delivery Date: 01/07/18 Infant Delivery Time: 17:13 Presentation: vertex Position: INGRID Route of delivery: Gender: Male Viability: Viable Weight Gram: 3.36 kg at 1 minute: 8 at 5 mins: 9 Shoulder Dystocia: not encountered Specimens collected: cord blood Placenta: spontaneous Cord: nuchal cord, 3 umbilical vessels, delivered through nuchal - Repair Episiotomy: none Laceration Description: Periurethral, Perineal - 1st Degree - Complications Delivery complications: none Delivery comments: Called to room for delivery after patient pushed the vertex to +4 station. Under maternal effort, spontaneous delivery of viable male over 1st degree perineal laceration, repaired with 3-0 Vicryl. Periurethral laceration noted to be hemostatic, not repaired. Nuchal cord x 1 noted, delivered through. Cord clamped and cut by FOB after pulsation ceased. Cord blood and cord segment collected. Apgars 8 & 9 at one and five minutes, 3360 gram . Spontaneous delivery of intact placenta. EBL 100 mL. Patient and stable in kangaroo care for [address] Melgoza present in room for proctoring of delivery. - Disposition Mom disposition: stable in LDR disposition: stable in LDR
[2018-01-07] MEDS ORDERED: Measles/Mumps/Rubella Vacc 0.5 ML VIAL SQ PRN (20:21)
[2018-01-07] MEDS ORDERED: Benzocaine/Menthol 56 GM AEROSOL SPRAY TP PRN (20:21)
[2018-01-07] MEDS ORDERED: Lanolin 7 G OINT...G. TP PRN (20:21)
[2018-01-07] MEDS ORDERED: Ibuprofen 600 MG TABLET PO PRN (20:21)
[2018-01-07] MEDS ORDERED: Acetaminophen 325 MG TABLET PO PRN (20:21)
[2018-01-07] MEDS: *HR* Buprenorphine HCl 8 MG TAB.SUBL SL SCH (21:14)
--- NOTE | 2018-01-08 08:26 | Discharge Summary ---
Date of Encounter: 01/08/18 Time of Encounter: 08:22 - Discharge Diagnosis (1) 39 weeks gestation of Priority: Secondary Status: Acute (2) Hepatitis C Priority: Secondary Status: Acute Qualifiers: Viral hepatitis chronicity: unspecified Hepatic coma status: without hepatic coma Qualified Code(s): B19.20 - Unspecified viral hepatitis C without hepatic coma (3) complicated by subutex maintenance, antepartum Priority: Secondary Status: Acute Comments: continue prescribed medication a 5 day hold (4) Group B streptococcal carriage complicating Priority: Secondary Status: Acute (5) Rubella non-immune status, antepartum Priority: Secondary Status: Acute Comments: MMR vaccine to be offered prior to discharge (6) Vaginal delivery Priority: Primary Status: Acute Comments: continue routine care discharge to guest today follow up with dr. Borjas in 4-6 weeks (7) Breast feeding status of mother Priority: Secondary Status: Acute Comments: consult prn - Discharge Medications Prescriptions: Ibuprofen [Motrin] 600 mg PO Q6HR PRN #60 tablet PRN Reason: Cramping Breast Pump [BREAST PUMP] 1 each .ROUTE AD #1 each Home Medications: Buprenorphine HCl/Naloxone HCl [Suboxone 8 mg-2 mg Sl Film] 1 each SL BID 11/25/16 [History] Benzocaine/Menthol [place] [Dermoplast [place]] 1 appl TP QID PRN aerosol 01/08/18 [Rx] Breast Pump [BREAST PUMP] 1 each .ROUTE AD #1 each 01/08/18 [Rx] Ibuprofen [Motrin] 600 mg PO Q6HR PRN #60 tablet 01/08/18 [Rx] Lanolin [Lansinoh] 1 appl TP TID PRN oint...g. 01/08/18 [Rx] Vit/FA 1 each PO DAILY tablet 01/08/18 [Rx] Allergies/Adverse Reactions: Allergy/AdvReac Type Severity Reaction Status Date / Time No Known Allergies Allergy Verified 01/06/18 23:50 Data Procedures and tests throughout hospitalization: Laboratory Tests 01/07/18 01/07/18 00:30 01:57 WBC 13.6 H RBC 4.10 Hgb 12.5 Hct 37.2 MCV 90.7 MCH 30.5 MCHC 33.6 RDW 12.4 Plt Count 223 MPV 10.6 Immature Gran % 0.4 Seg Neutrophils % 75.6 Lymphocytes % 17.4 Monocytes % 5.6 Eosinophils % 0.9 Basophils % 0.1 Neutrophils # 10.3 H Lymphocytes # 2.4 Monocytes # 0.8 Eosinophils # 0.1 Basophils # 0.0 Immature Plt Fraction 5.4 Urine Opiates Screen Negative Ur Barbiturates Screen Negative Ur Phencyclidine Scrn Negative Ur Amphetamines Screen Negative U Benzodiazepines Scrn Negative Urine Cocaine Screen Negative U Marijuana (THC) Screen Negative Ur Drug Screen Interp See Below Date of admission: 01/07/18 01:17 Primary care physician: PCP NONE Consults: 01/07/18 20:[address] Machine Runner [CONS] Routine Comment: Vaginal delivery, consult needed Consult to Magazine Keeper [CONS] Routine Reason for SW Consult: Subutex group Discharging clinician: Danya Dalton Anticipated date of discharge: 01/08/18 - Patient Status Disposition: Home, Self-Care Condition: Good Functional capacity at discharge: independent ambulation - Discharge Instructions Follow Up With: NONE,PCP [Primary Care Provider] - - Diet and Activity Activity: increase activity as tolerated Diet: regular diet Hospital Course Reason for admission: active labor Delivery: Episiotomy: none Laceration: 1st degree Other procedures: none complications: none Discharge diagnosis: IUP at term delivered [place] baby: male (breast feeding) Time Attestation: Total time spent providing and/or coordinating discharge services: Time Spent: Less than 30 minutes Exam - Constitutional Vitals: Temp Pulse Resp BP Pulse Ox 97.5 F L 73 20 107/71 99 01/08/18 07:57 01/08/18 07:57 01/08/18 07:57 01/08/18 07:57 01/08/18 07:57 General appearance IM: A&O X 3, pleasant, answers questions appropriately - Respiratory Respiratory exam: Present: CTAB - Cardiovascular Cardiovascular exam IM: Present: RRR, +S1, +S2 - GI/Abdominal GI/Abdominal exam IM: normal bowel sounds - Uterine Tone: Firm Uterus Position: At Umbilicus, Midline - Extremities Exam Extremities exam IM: Present: full ROM, normal capillary refill, normal inspection - Neurological Exam Neurological exam: alert, oriented X3, reflexes normal
[2018-01-08] MEDS ORDERED: Prenatal Vit/FA 1 EACH TABLET PO SCH (09:00)
[2018-01-08] MEDS: *HR* Buprenorphine HCl 8 MG TAB.SUBL SL SCH (09:52)
[2018-01-08 16:08] VITALS: BP 112/63
== END 2018-01-08 17:11 | disposition home or self-care (01) | DRG 560 ==
LOC: 1NENULAB → 1NENUOBS 20:10
PROVIDERS: ADMIT Advanced Practice Midwife; ATTEND Advanced Practice Midwife

== ENCOUNTER 2019-07-27 16:54 | Observation (INO) ==
[2019-07-27] MEDS ORDERED: Piperacillin/Tazobactam 3.375 GM in 0.9 % Sodium Chloride Mini Bag 100 ML IVPB ONE (17:52)
[2019-07-27] MEDS ORDERED: Piperacillin/Tazobactam 3.375 GM in Water for inj. (sterile) 20 ML IVP ONE (18:06)
[2019-07-27 18:24] LABS: Hemoglobin 14.1 g/dL (11.5-15.4); Mean Corpuscular Hemoglobin 29.1 pg (28.0-33.3); Mean Corpuscular Volume 90.7 fL (83.0-100.0); Mean Platelet Volume 10.4 fL (9.4-12.4); Platelet Count 284 K/mcL (140-400); Red Blood Count 4.85 M/mcL (3.82-4.97); Red Cell Distribution Width 11.5 % (11.5-14.5); White Blood Count 7.6 K/mcL (4.3-11.1)
[2019-07-27 18:39] LABS: BUN/Creatinine Ratio 13 (6-26); Blood Urea Nitrogen 8 mg/dL (6-20); Calcium 9.6 mg/dL (8.6-10.3); Carbon Dioxide 25 mEq/L (23-29); Chloride 104 mEq/L (98-107); Glucose 95 mg/dL (70-105); Osmolality,Calculated 284 (280-300); Potassium 3.5 mEq/L (3.5-5.1); Sodium 138 mEq/L (136-145); eGFR For African Americans > 60 (> 60); eGFR For Non-African Americans > 60 (> 60)
[2019-07-27] MEDS ORDERED: Naloxone 0.4 MG/ML INJ IVP PRN (20:29)
[2019-07-27] MEDS ORDERED: Isovue-370 500 ML BOTTLE IVP ONE (21:41)
[2019-07-27] MEDS ORDERED: Ketorolac 15 MG/ML VIAL IVP PRN (22:55)
[2019-07-27] MEDS: *HR* Buprenorphine HCl 8 MG TAB.SUBL SL SCH (23:38)
[2019-07-28 05:50] LABS: Hematocrit 36.4 % (35.3-44.9); Mean Corpuscular Hemoglobin 29.6 pg (28.0-33.3); Mean Corpuscular Volume 89.9 fL (83.0-100.0); Mean Platelet Volume 10.4 fL (9.4-12.4); Platelet Count 245 K/mcL (140-400); Red Blood Count 4.05 M/mcL (3.82-4.97); Red Cell Distribution Width 11.5 % (11.5-14.5); White Blood Count 6.6 K/mcL (4.3-11.1)
[2019-07-28 06:09] LABS: BUN/Creatinine Ratio 19 (6-26); Blood Urea Nitrogen 11 mg/dL (6-20); Calcium 8.6 mg/dL (8.6-10.3); Carbon Dioxide 26 mEq/L (23-29); Chloride 108 mEq/L (98-107); Glucose 101 mg/dL (70-105); Osmolality,Calculated 284 (280-300); Potassium 3.7 mEq/L (3.5-5.1); Sodium 137 mEq/L (136-145); eGFR For African Americans > 60 (> 60); eGFR For Non-African Americans > 60 (> 60)
[2019-07-28] MEDS: *HR* Buprenorphine HCl 8 MG TAB.SUBL SL SCH ×2 (08:44→20:36)
[2019-07-28] MEDS ORDERED: Piperacillin/Tazobactam 3.375 GM in 0.9 % Sodium Chloride Mini Bag 100 ML IVPB SCH ×2 (09:00)
[2019-07-28] MEDS ORDERED: *HR* HYDROmorphone 2 MG TABLET PO PRN ×2 (11:24→13:33)
[2019-07-28] MEDS ORDERED: Pregabalin 75 MG CAPSULE PO ONE ×2 (11:24→13:33)
[2019-07-28] MEDS ORDERED: *HR* OxyCODONE Immed Rel 5 MG TABLET PO PRN ×2 (11:24→13:33)
[2019-07-28] MEDS ORDERED: *HR* Labetalol 20 MG/4 ML SYRINGE IVP PRN ×2 (11:24→13:33)
[2019-07-28] MEDS ORDERED: *HR* Promethazine 25 MG/ML VIAL IVP PRN ×2 (11:24→13:33)
[2019-07-28] MEDS ORDERED: *HR* HYDROmorphone (PF) 1 MG/ML SYRINGE IVP PRN ×2 (11:24→13:33)
[2019-07-28] MEDS ORDERED: *HR* Propofol 200 MG/20 ML VIAL IVP ONE (11:38)
[2019-07-28] MEDS ORDERED: *HR* FentaNYL (PF) 100 MCG/2 ML VIAL ONE ×2 (11:38→12:03)
[2019-07-28] MEDS ORDERED: Ondansetron 4 MG/2 ML VIAL ONE (11:38)
[2019-07-28] MEDS ORDERED: Lidocaine -MPF 2% 2 ML VIAL ONE (11:38)
[2019-07-28] MEDS ORDERED: *HR* Midazolam HCl 2 MG/2 ML VIAL ONE (11:38)
[2019-07-28] MEDS ORDERED: Dexamethasone 4 MG/ML VIAL ONE (11:38)
[2019-07-28] MEDS ORDERED: Bupivacaine/EPI 1:200k 0.5%PF 10 ML VIAL ONE (11:42)
[2019-07-28] MEDS ORDERED: *HR* Midazolam HCl 5 MG/5 ML VIAL IVP ONE (12:03)
[2019-07-28] MEDS ORDERED: ROPIVACAINE/PF/NS 0.25% 1 EACH SYRINGE INTRAART ONE (12:05)
[2019-07-28] MEDS ORDERED: Bupivacaine-MPF 0.25% 10 ML VIAL ONE (12:05)
[2019-07-28] MEDS ORDERED: Famotidine 20 MG/2 ML VIAL ONE (12:06)
[2019-07-28] MEDS ORDERED: Ropivacaine/PF 0.5% 30 ML VIAL ONE (12:13)
[2019-07-28] MEDS ORDERED: Naloxone 0.4 MG/ML INJ IVP PRN (13:33)
[2019-07-28] MEDS ORDERED: Ketorolac 15 MG/ML VIAL IVP PRN (13:33)
[2019-07-28] MEDS: Piperacillin/Tazobactam 3.375 GM in 0.9 % Sodium Chloride Mini Bag 100 ML IVPB SCH ×2 (16:08→23:48)
[2019-07-29] MEDS: Piperacillin/Tazobactam 3.375 GM in 0.9 % Sodium Chloride Mini Bag 100 ML IVPB SCH (08:09)
[2019-07-29] MEDS: *HR* Buprenorphine HCl 8 MG TAB.SUBL SL SCH (08:09)
[2019-07-29 09:02] LABS: Basophils % 0.3 %; Eosinophils # 0.1 K/mcL (0.0-0.6); Eosinophils % 2.2 %; Hematocrit 36.2 % (35.3-44.9); Hemoglobin 11.6 g/dL (11.5-15.4); Immature Granulocytes % 0.6 % (0-4); Lymphocytes # 2.3 K/mcL (0.6-4.6); Mean Corpuscular Hemoglobin 29.5 pg (28.0-33.3); Mean Corpuscular Volume 92.1 fL (83.0-100.0); Mean Platelet Volume 10.2 fL (9.4-12.4); Monocytes # 0.4 K/mcL (0.0-1.3); Monocytes % 6.8 %; Neutrophils # 3.4 K/mcL (1.6-8.9); Platelet Count 203 K/mcL (140-400); Red Blood Count 3.93 M/mcL (3.82-4.97); Red Cell Distribution Width 11.5 % (11.5-14.5); Segmented Neutrophils % 54.1 %; White Blood Count 6.3 K/mcL (4.3-11.1)
[2019-07-29 09:08] LABS: BUN/Creatinine Ratio 20 (6-26); Blood Urea Nitrogen 15 mg/dL (6-20); Calcium 8.4 mg/dL (8.6-10.3); Carbon Dioxide 28 mEq/L (23-29); Chloride 106 mEq/L (98-107); Glucose 95 mg/dL (70-105); Osmolality,Calculated 287 (280-300); Phosphorous 3.9 mg/dL (2.7-4.5); Potassium 4.2 mEq/L (3.5-5.1); Sodium 138 mEq/L (136-145); eGFR For African Americans > 60 (> 60); eGFR For Non-African Americans > 60 (> 60)
[2019-07-29 11:04] VITALS: BP 116/68
== END 2019-07-29 13:28 | disposition home or self-care (01) ==
LOC: 3ANU 16:54 → EMEROOARM 16:54 → 3ANU 19:50
PROVIDERS: ADMIT Student in an Organized Health Care Education/Training Program; ATTEND Student in an Organized Health Care Education/Training Program